=== PATIENT | male | born 1980 | race Caucasian/White ===

== ENCOUNTER 2021-04-26 08:58 | Emergency (ER) | payer BC, SELFPAY ==
--- NOTE | ~2021-04-26 | XR_ITS ---
EXAMINATION: XR foot RT min 3V EXAM DATE: 04/26/2021 10:22 INDICATION: rt 1st toe pain s/p fall today . TECHNIQUE: Right foot dorsoplantar, lateral and oblique projections obtained and reviewed. There is no prior study for comparison. FINDINGS: Right metatarsal bones unremarkable. Suspicion of acute closed posttraumatic nondisplaced fracture or fractures through the base of the right 1st distal phalanx. No other suspicious findings. IMPRESSION: Probable nondisplaced right 1st distal phalangeal base intra-articular fracture(s). Reviewed, dictated and finalized at location B. [employer] IMPRESSION: Probable nondisplaced right 1st distal phalangeal base intra-artic ular fracture(s).
[2021-04-26 09:11] VITALS: BP 150/109; PULSE 92; RESP 16; TEMP 37.1; O2SAT 99
--- NOTE | 2021-04-26 10:11 | ED.FALL ---
HPI - Fall General Chief Complaint: Wound/Laceration Stated Complaint: cut bottom lip Time Seen by Provider: 04/26/21 10:01 Source: patient and RN notes reviewed Mode of arrival: ambulatory Limitations: no limitations History of Present Illness HPI Narrative: Patient presents today complaining of a fall at 730 this morning outside his child school. He is complaining of pain to the right first toe. Denies numbness or tingling, but reports throbbing. He also reports pain and laceration to the right lower lip, swelling and bruising to the right cheek. He is unsure of the date of his last tetanus vaccine. He has tried no [id number] interventions prior to arrival. MD complaint: fall Related Data Home Medications Medication Instructions Recorded Confirmed escitalopram oxalate [Lexapro] 10 mg PO DAILY 04/26/21 04/26/21 furosemide 40 mg PO DAILY 04/26/21 04/26/21 omeprazole 20 mg PO DAILY 04/26/21 04/26/21 potassium 20 mg PO DAILY 04/26/21 04/26/21 rosuvastatin 5 mg PO DAILY 04/26/21 04/26/21 testosterone See Rx Instructions .ROUTE .COMPLEX 04/26/21 04/26/21 Allergies Allergy/AdvReac Type Severity Reaction Status Date / Time No Known Allergies Allergy Verified 04/26/21 09:44 Review of Systems Review of Systems: CONSTITUTIONAL: Denies body aches, fever, chills, or sweats. EYES: Denies visual changes, redness, or discharge. ENT: Denies rhinorrhea, congestion, sore throat, or otalgia. CARDIOVASCULAR: Denies chest pain, palpitations, or edema. RESPIRATORY: Denies cough or dyspnea. GASTROINTESTINAL: Denies abdominal pain, nausea, vomiting, or diarrhea. GENITOURINARY: Denies dysuria or hematuria. SKIN: Denies rash, itching. + Lip laceration, right cheek swelling MUSCULOSKELETAL: Denies back pain, or myalgia.+ Right great toe injury NEUROLOGIC: Denies headache, numbness, tingling, or weakness. PSYCH: Denies depression or anxiety. PMFSH Comments At time of signature, I have reviewed and agree with nursing past medical, surgical, social and family history unless otherwise noted. Please see nursing chart for further information. There is no relevant family history pertinent to the presenting complaint Exam Narrative: GENERAL: Well-appearing, well-nourished, and in no acute distress. HEAD: Normocephalic. + Moderate swelling and mild ecchymosis to the right upper cheek with tenderness to the soft tissue. No bony tenderness or crepitus to the orbit noted. EYES: EOMI. PERRL. No redness or drainage. Conjunctivae normal. ENT: Mucous membranes pink and moist. 2 cm partial-thickness laceration to the right lower lip, inner aspect. NECK: Normal AROM. Supple. No lymphadenopathy. CHEST: No respiratory distress. MUSCULOSKELETAL: No bony tenderness. EXTREMITIES: Normal range of motion. Right great toe: Tenderness about the toe with mild edema. No ecchymosis or abrasion noted. Distal sensation intact. Capillary refill normal. Pedal pulse normal. SKIN: Warm, dry, no rash. Capillary refill normal. Normal skin turgor. NEURO: No focal deficits. Alert and oriented x3. Gait steady. PSYCH: Normal affect. No signs of depression or anxiety. Course Course Level of Care: Express Care Visit Vital Signs Vital signs: Vital Signs Temperature 98.7 F 04/26/21 09:11 Pulse Rate 92 04/26/21 09:11 Respiratory Rate 16 04/26/21 09:11 Blood Pressure 150/109 H 04/26/21 09:11 Pulse Oximetry 99 04/26/21 09:11 Temperature 98.7 F 04/26/21 09:11 Pulse Rate 92 04/26/21 09:11 Respiratory Rate 16 04/26/21 09:11 Blood Pressure 150/109 H 04/26/21 09:11 Pulse Oximetry 99 04/26/21 09:11 Reviewed. Pt has been instructed to follow up with his PCP regarding his elevated blood pressure today. Procedures Laceration Laceration 1: Date: 04/26/21 Time: 10:40 Site: lip Size (cm): 2 Description: linear Depth: simple, single layer Local Anesthetic: lidocaine 1% Amount o
[2021-04-26] MEDS: TETANUS,DIPHTHERIA,AC PERTUSSIS ADULT (0.5 ML) BOOSTRIX IM (10:59)
== END 2021-04-26 11:10 | disposition home or self-care (01) ==
PROVIDERS: Emergency Provider Nurse Practitioner
DX: S01.511A Laceration without foreign body of lip, initial encounter (principal); S92.401A Displaced unspecified fracture of right great toe, initial encounter for closed fracture; W19.XXXA Unspecified fall, initial encounter; Z23 Encounter for immunization; E78.00 Pure hypercholesterolemia, unspecified; K21.9 Gastro-esophageal reflux disease without esophagitis; F41.9 Anxiety disorder, unspecified; F32.9 Major depressive disorder, single episode, unspecified
CPT/HCPCS: 12011; 73630; 90471; 90715; 99204; G0463